=== PATIENT | male | born 2000 | race Caucasian/White ===

== ENCOUNTER 2023-01-24 14:17 | Inpatient (IN) | payer OTHER, SELFPAY ==
[2023-01-24 14:22] VITALS: BP 140/99; PULSE 72; RESP 17; TEMP 36.9; O2SAT 97; BMI 24.3
--- NOTE | 2023-01-24 15:16 | PC.NURSE ---
PATIENT PLACED IN BOTTOM SCRUBS FACILITY IS OUT OF TOPS THAT FIT PATIENT. FATHER WITH PATIENT AT THIS TIME. PATIENT STATES THAT FATHER MAKES HIM FEEL COMFORTABLE AT THIS TIME. CHARGE NURSE AGREED TO LET HIM STAY.
--- NOTE | 2023-01-24 15:22 | W.ED.PSYCHS ---
HPI - Psych General: Chief Complaint: Psychiatric Symptoms Stated Complaint: SI Time Seen by Provider: 01/24/23 14:37 Source: patient Mode of arrival: ambulatory History of Present Illness: 22-year-old male presents to the emergency room with complaints of suicidal ideation. Patient states he has dreams of killing himself he has had these since he was approximately 8 years old lately they have become more intense he has become more fixated on them and has begun to think about carrying out the dreams. He recently talked to his father about this he Dri-Aid Kit were intoxication trying to get himself over the fear of killing himself but was unable to do so please become very anxious and depressed about this. He is not currently on any medications not previously seen for mental health issues. MD complaint: suicidal ideation Onset (ago): year(s) Duration: constant, changing over time and getting worse Relieving factors: none Exacerbating factors: none Context: recent alcohol abuse Associated symptoms: Reports depression and suicidal ideation; Deny auditory hallucinations, visual hallucinations, delusions, homicidal ideation, racing thoughts or other Treatments prior to arrival: none If self harm: admits thoughts of self harm Review of Systems Const: Denies: fever(s) or chills Card: Denies: chest pain Resp: Denies: dyspnea GI: Denies: abdominal pain : Denies: dysuria, urinary frequency or urinary urgency Musc: Denies: neck pain or back pain Skin/Breast: Denies: rash Psych: Reports: depression and suicidal ideation; Denies: visual hallucinations, auditory hallucinations or homicidal ideation Physical Exam Const: COMMON NORMALS: no acute distress GENERAL APPEARANCE: cooperative and comfortable ORIENTATION/CONSCIOUSNESS: Yes awake, Yes oriented to person, Yes oriented to place and Yes oriented to time HENMT: COMMON NORMALS: normocephalic, atraumatic and hearing grossly normal bilaterally HEAD & SCALP: normocephalic and atraumatic Resp: COMMON NORMALS: normal respiratory effort, No retractions, No use of accessory muscles and clear to auscultation bilaterally AUSCULTATION: clear to auscultation bilaterally Cardio: COMMON NORMALS: regular rate, regular rhythm and No murmurs present (Cardio) RATE: regular rate RHYTHM: regular rhythm GI: COMMON NORMALS: Soft to palpation and No hepatosplenomegaly present AUSCULTATION: Yes normoactive bowel sounds PALPATION: Yes Soft to palpation, No Tenderness to palpation present (GI), No Guarding due to palpation present (GI) and Yes No hepatosplenomegaly present Extremity: COMMON NORMALS: normal to inspection, capillary refill normal, no clubbing, cyanosis or edema, no calf tenderness and no pedal edema Neuro: SENSORIUM/ORIENTATION: Yes oriented to person, Yes oriented to place and Yes oriented to time Psych: THOUGHT CONTENT: No delusions Skin: COMMON NORMALS: no rashes or lesions noted GENERAL SKIN EXAM: no rashes or lesions noted Course Vital Signs: Vital signs: Vital Signs Temperature 97.7 F 01/27/23 08:14 Pulse Rate 61 01/27/23 08:14 Respiratory Rate 16 01/27/23 08:14 Blood Pressure 98/59 01/27/23 08:14 Pulse Oximetry 98 01/27/23 08:14 Oxygen Delivery Me thod Room Air 01/27/23 06:00 MDM - Psych Medical Decision Making Suicidal ideation with attempted increasing lethality. Discussed with On-call psychiatry will admit Medical Records I reviewed the patient's medical records. Lab Data I reviewed the patient's lab results. 01/24/23 15:30 01/24/23 15:30 Laboratory Results WBC 8.24 10^3/uL (3.29-11.43) 01/24/23 15:30 RBC 5.24 10^6/uL (3.85-5.65) 01/24/23 15:30 Hgb 15.50 g/dL (11.27-16.99) 01/24/23 15:30 Hct 46.0 % (37-53) 01/24/23 15:30 MCV 87.8 fl (82-101) 01/24/23 15:30 MCH 29.6 pg (27-33) 01/24/23 15:30 MCHC 33.7 g/dL (30-55) 01/24/23 15:30 RDW 13.4 % (12.1-15.1) 01/24/23 15:30 Plt Count 370 10^3/cmm (157-399) 01/24/23 15:30 MPV 9.3 fL (7.4-10.4) 01/24/23 15:30 Neut % (Auto) 54.1 % 01/24/23 15:30 Lymph % (Auto) 34.5 % 01/24/23 15:30 Gray % (Auto) 8.1 % 01/24/23 15:30 Eos % (Auto) 2.5 % 01/24/23 15:30 Baso % (Auto) 0.6 % 01/24/23 15:30 Neut # (Auto) 4.45 10^3/uL (1.8-7.7) 01/24/23 15:30 Lymph # (Auto) 2.8 10^3/uL (0.8-4.8) 01/24/23 15:30 Gray # (Auto) 0.7 10^3/uL (0.2-0.9) 01/24/23 15:30 Eos # (Auto) 0.2 10^3/uL (0.0-0.8) 01/24/23 15:30 Baso # (Auto) 0.1 10^3/uL (0.0-0.1) 01/24/23 15:30 Nucleated RBC % (auto) 0 % 01/24/23 15:30 Nucleated RBCs # 0.0 /100WBC 01/24/23 15:30 Sodium 138 mmol/L (136-145) 01/24/23 15:30 Potassium 4.0 mmol/L (3.5-5.1) 01/24/23 15:30 Chloride 102 mmol/L (98-107) 01/24/23 15:30 Carbon Dioxide 25 mmol/L (22-29) 01/24/23 15:30 Anion Gap 15.0 (5-19) 01/24/23 15:30 BUN 10 mg/dL (6-20) 01/24/23 15:30 Creatinine 0.9 mg/dL (0.7-1.2) 01/24/23 15:30 GFR Calculation 104.6 mL/min (90-130) 01/24/23 15:30 Glucose 79 mg/dL (65-115) 01/24/23 15:30 Calculated Osmolality 284 mOsm/kg (285-295) L 01/24/23 15:30 Calcium 9.2 mg/dL (8.5-10.5) 01/24/23 15:30 Total Bilirubin 0.9 mg/dL (0.15-1.2) 01/24/23 15:30 AST 17 U/L (0-40) 01/24/23 15:30 ALT 18 U/L (0-41) 01/24/23 15:30 Alkaline Phosphatase 72 U/L (40-130) 01/24/23 15:30 Total Protein 7.1 g/dL (6.6-8.7) 01/24/23 15:30 Albumin 4.4 g/dL (3.5-5.2) 01/24/23 15:30 Globulin 2.7 g/dL (1.3-4.6) 01/24/23 15:30 Urine Color Yellow (Yellow) 01/24/23 14:55 Urine Appearance Sl hazy (CLEAR) A 01/24/23 14:55 Urine pH 8 (5-7) H 01/24/23 14:55 Ur Specific [place] 1.015 (1.005-1.030) 01/24/23 14:55 Urine Protein Neg (Negative) 01/24/23 14:55 Urine Glucose (UA) Norm (Normal) 01/24/23 14:55 Urine Ketones 1+ (Negative) H 01/24/23 14:55 Urine Blood Neg (Negative) 01/24/23 14:55 Urine Nitrate Negative (Negative) 01/24/23 14:55 Urine Bilirubin Neg (Negative) 01/24/23 14:55 Prot Sulfosalicylic Acd Negative (Negative) 01/24/23 14:55 Urine Urobilinogen 4 mg/dL (Negative) H 01/24/23 14:55 Ur Leukocyte Esterase Trace (Negative) H 01/24/23 14:55 Urine RBC None /hpf (0-2) 01/24/23 14:55 Urine WBC 0-4 /hpf (0-5) H 01/24/23 14:55 Ur Squamous Epith Cells None /hpf (0-5) 01/24/23 14:55 Amorphous Sediment 2+ /hpf 01/24/23 14:55 Urine Bacteria 1+ /hpf (NONE) H 01/24/23 14:55 Salicylates < 0.3 mg/dL (3-10) L 01/24/23 15:30 Urine Opiates Screen Negative ng/mL (Negative) 01/24/23 14:55 Acetaminophen < 5.0 ug/mL (10-30) L 01/24/23 15:30 Ur Barbiturates Screen Negative ng/mL (Negative) 01/24/23 14:55 Ur Phencyclidine Scrn Negative ng/mL (Negative) 01/24/23 14:55 Ur Amphetamines Screen Negative ng/mL (Negative) 01/24/23 14:55 U Benzodiazepines Scrn Negative ng/mL (Negative) 01/24/23 14:55 Urine Cocaine Screen Negative ng/mL (Negative) 01/24/23 14:55 U Marijuana (THC) Screen Positive ng/mL (Negative) H 01/24/23 14:55 Ethyl Alcohol < 10 mg/dL (0-10) 01/24/23 15:30 No radiology studies performed this visit Discharge Plan Discharge Patient Disposition: Admitted As Inpatient Admit Provider: Yves Nixon Clinical Impression: Suicidal ideation, Persistent depressive disorder with anxious distress, currently moderate Condition: Stable Discharge Diet: Regular Discharge Activity: Resume usual activity Coding Level of Care Code ED Equal Opportunity Specialist for Adriana Ceron
[2023-01-24 15:35] LABS: Amphetamines Screen Urine Negative (Negative); Barbiturates Screen Urine Negative (Negative); Benzodiazepines Screen Urine Negative (Negative); Cocaine Screen Urine Negative (Negative); Opiate Screen Urine Negative (Negative); PCP Screen Urine Negative (Negative); THC Screen Urine Positive (Negative)
[2023-01-24 15:38] LABS: Basophils # 0.1 10^3/uL (0.0-0.1); Basophils % 0.6 %; Eosinophils # 0.2 10^3/uL (0.0-0.8); Eosinophils % 2.5 %; Lymphocytes # 2.8 10^3/uL (0.8-4.8); Lymphocytes % 34.5 %; Mean Corpuscular HGB Conc 33.7 g/dL (30-55); Mean Corpuscular Hemoglobin 29.6 pg (27-33); Mean Corpuscular Volume 87.8 fl (82-101); Mean Platelet Volume 9.3 fL (7.4-10.4); Monocytes # 0.7 10^3/uL (0.2-0.9); Monocytes % 8.1 %; Neutrophils # 4.45 10^3/uL (1.8-7.7); Neutrophils % 54.1 %; Nucleated Red Blood Cells % 0 %; Platelet Count 370 10^3/cmm (157-399); Red Blood Count 5.24 10^6/uL (3.85-5.65); Red Cell Distribution Width 13.4 % (12.1-15.1); White Blood Count 8.24 10^3/uL (3.29-11.43)
[2023-01-24 15:39] LABS: Urine Appearance SL Hazy (CLEAR); Urine Color Yellow (Yellow)
[2023-01-24 15:40] LABS: Add Urine Microscopic? YES; Amorphous Sediment Urine 2+ /hpf; Bacteria Urine 1+ /hpf; Bilirubin Urine Neg (Negative); Blood Urine Neg (Negative); Glucose Urine UA Norm (Normal); Ketones Urine 1+ (Negative); Leukocyte Esterase Urine Trace (Negative); Nitrate Urine Negative (Negative); Protein Urine Neg (Negative); Specific Gravity, Urine 1.015 (1.005-1.030); Sulfosalicylic Acid Urine Negative (Negative); Urobilinogen Urine 4 mg/dL (Negative); WBC Urine 0-4 /hpf (0-5); pH Urine 8 (5-7)
[2023-01-24 15:41] LABS: Add Urine Culture? No
[2023-01-24 16:01] LABS: Alanine Aminotransferase 18 U/L (0-41); Albumin Level 4.4 g/dL (3.5-5.2); Alkaline Phosphatase 72 U/L (40-130); Aspartate Amino Transferase 17 U/L (0-40); Blood Urea Nitrogen 10 mg/dL (6-20); Calcium 9.2 mg/dL (8.5-10.5); Carbon Dioxide 25 mmol/L (22-29); Chloride 102 mmol/L (98-107); Globulin 2.7 g/dL (1.3-4.6); Glomerular Filtration Rate 104.6 mL/min (90-130); Glucose 79 mg/dL (65-115); Osmolality Calculated 284 mOsm/kg (285-295); Sodium 138 mmol/L (136-145); Total Bilirubin 0.9 mg/dL (0.15-1.2); Total Protein 7.1 g/dL (6.6-8.7)
[2023-01-24 16:02] LABS: Acetaminophen < 5.0 ug/mL (10-30); Salicylate < 0.3 mg/dL (3-10)
[2023-01-24 16:54] LABS: Alcohol Level < 10 mg/dL (0-10)
[2023-01-24 17:35] VITALS: BP 157/67; PULSE 63; RESP 16; TEMP 36.6; O2SAT 99
[2023-01-24] MEDS: trazodone 50 mg Tablet PO (20:09)
[2023-01-24 20:13] VITALS: BP 92/48; PULSE 62; RESP 17; TEMP 36.9; O2SAT 96
[2023-01-25 06:00] VITALS: BP 104/66; PULSE 81; RESP 16; TEMP 36.6; O2SAT 97
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
[2023-01-25 14:00] VITALS: BP 101/59; PULSE 53; RESP 16; TEMP 36.6; O2SAT 96
[2023-01-25 20:53] VITALS: BP 100/68; PULSE 53; RESP 16; TEMP 36.7; O2SAT 98
[2023-01-26 06:00] VITALS: BP 104/66; PULSE 73; RESP 16; TEMP 37; O2SAT 98
[2023-01-26] MEDS: fluoxetine 20 mg Capsule PO (13:22)
[2023-01-26 14:00] VITALS: BP 102/62; PULSE 57; RESP 14; TEMP 36.8; O2SAT 99
--- NOTE | 2023-01-26 17:10 | W.PM.NPUPNS ---
Subjective NPU Subjective: Patient presented today reporting that he feels like he is doing a little better. He denied any issues with the medication currently and discussed desire to leave sooner rather than later. We discussed making sure we had outpatient treatment plans in place and that he was tolerating the medication. We discussed the likelihood of discharge in the next 48 hours if he continued to have current trajectory of improvement. Mental Status Exam MSE Comments: This is a well-nourished, well-developed, white male, in hospital scrubs, with improving grooming and eye contact. No abnormal movements, except for mild psychomotor retardation. Cooperative with exam in mild distress. Speech was normal rate and volume. Mood described as good; affect congruent. Thought process, organized. Thought content: patient denied any current suicidal ideation or homicidal ideation, there were no delusions reported or noted, patient denied any auditory or visual hallucinations. Attention, concentration, and memory appeared intact, but none were formally tested. Alert and oriented times three. Insight and judgment appear fair. Impulse control is limited, but improving. Vitals/I&O/Wt Last Vital Signs Temp 97.8 F 01/26/23 20:10 Pulse 57 L 01/26/23 20:10 Resp 18 01/26/23 20:10 BP 100/65 01/26/23 20:10 Pulse Ox 97 01/26/23 20:10 O2 Del Method Room Air 01/26/23 06:00 Weight last 48 hrs Weight 76.657 kg Data NPU 01/24/23 15:30 01/24/23 15:30 A&P Assessment and plan (1) Major depressive disorder, recurrent: (2) Persistent depressive disorder with anxious distress, currently moderate: (3) Generalized anxiety disorder: Plan This is a 22-year-old, white male, with some genetic loading for mental health issues, with a long history of suicidal thoughts and depressive symptoms, with no history of psychiatric treatment or medications, who presents with an affidavit, and reporting he finally realizes he needs help, with a willingness to start medication. 1. Started Prozac 20 mg p.o. daily. 2. Encourage individual, group, and milieu therapy. 3. Continue q-15-minute checks for safety. Involuntary Hold Information 96 Hour Hold: 96 Hour Involuntary Admission: No Attestations NPU Medical Necessity Statement*: Inpatient hospitalization is medically necessary and the clinically appropriate intervention, at this time. We will monitor medications and make changes as indicated. Likely length of stay is 1-3 days. Coding Level of Care Code Acute Code for [facility] Fwd Diagnoses Major depressive disorder, recurrent F33.9 Persistent depressive disorder with anxious distress, currently moderate F34.1 Generalized anxiety disorder F41.1
[2023-01-26] MEDS: trazodone 50 mg Tablet PO (19:49)
[2023-01-26 20:10] VITALS: BP 100/65; PULSE 57; RESP 18; TEMP 36.6; O2SAT 97
[2023-01-27 06:00] VITALS: BP 98/59; PULSE 61; RESP 16; TEMP 36.5; O2SAT 98
--- NOTE | 2023-01-27 08:08 | P.NPUDS_ITS ---
Diagnoses at Discharge Discharge Diagnosis (1) Major depressive disorder, recurrent: Status: Acute (2) Persistent depressive disorder with anxious distress, currently moderate: Status: Acute (3) Generalized anxiety disorder: Status: Acute Reason for Visit Reason for Visit: SI Brief History: History of Present Illness Silviano Gonzalez is a 22 year old male who presented to the emergency department with reports of depression and suicidal ideation since 8 years old with current worries of acting on his thoughts. The patient was admitted to the neuropsychiatric unit for definitive treatment of those issues. The patient presents today reporting that he is not currently on medications. He reports that what brought him here was he was having suicidal thoughts. The patient denies previous psychiatric hospitalization. He denies outpatient services or previous psychiatric medications. The patient reports that he vapes and has for about a year. He endorses alcohol use every other weekend, if that. He endorses marijuana use every other day. He denies use of cocaine, methamphetamine, opia genoveva, mushrooms, LSD, ecstasy or any other illicit drugs. He denies drug rehabilitation or DUI. He had an MIP, minor in possession charge, when he was 17 years old. He endorses feelings of hopelessness, helplessness, and worthlessness, all the time, lack of enjoyment, passive wish, and suicidal thoughts. He denies much sleep disturbance and endorses appetite changes, not eating as much. He endorses having intrusive thoughts about killing himself since he was around 8 years old. He endorses persistently just feeling down but has not previously pursued psychiatric treatment. He reports that yesterday was the first time he really thought he needed to get help, or something might actually happen. The patient reports that his parents got when he was 8 years old. He reports that his dad worked two jobs and they did not want to live with mom because she did not know how to take care of them. He reports that his dad worked, and the patient took care of himself and his little brother. He endorses anxiety with cognitive symptoms and physical symptoms. He denies paranoia. He denies auditory or visual hallucinations. He endorses frequent nightmares and flashbacks, from life events. He endorses counting in his mind and counting which manifests in specific behaviors. We discussed the risks, benefits, and alternatives of starting Prozac, and he understood and agreed to proceed as is documented in this note. PSYCHIATRIC HISTORY: As above. SUBSTANCE ABUSE HISTORY: As above.? FAMILY HISTORY: The patient endorses mental health issues on his mom?s side of the family, stating he thinks his mom has depression. He denies awareness of addiction issues on either side of the family. He endorses suicide attempt on dad?s side. DEVELOPMENTAL HISTORY: The patient denies any issues with his mother?s or delivery of him. The patient reports learning to walk and talk and meeting developmental milestones on time. The patient denies speech therapy, learning support, emo tional support, or special education classes. He denies IEP or 504 plans. PSYCHOSOCIAL HISTORY: The patient reports that his mother and father were together at his , and when he was 8 years old. He has a younger brother who is also from that union. He denies any other children. He describes his childhood as okay. He endorses neglect and denies emotional, physical, or sexual abuse. He denies [employer] involvement. He endorses trauma from his parent?s fighting. He reports that he graduated from high school. He endorses [employer] training. He endorses being heterosexual, with his longest relationship being six months. He has not been or had children. He denies service or a uatsdin belief system. He reports that his longest job was about six months. He reports that he has done well at various jobs but ends up leaving because he is bored. He reports that he currently lives in ? with a roommate. LEGAL HISTORY: Denied. MEDICAL HISTORY: The patient denies any known allergies to medications. He endorses asthma when he was growing up. Hospital Course Hospital Course He quickly acclimated to the individual, group and milieu therapies provided.? He presented reporting suicidal ideation but was open to a medication trial. He was started on Prozac 20 mg p.o. daily as well as trazodone 50 mg p.o. nightly with clear improvement. He was able to work with the social work team to establish appropriate aftercare and follow-up appointments. He had significant improvement during his stay and was able to contract for safety outside of the hospital prior to discharge.? During the hospitalization, patient had routine laboratory studies which were within normal limits except for few outliers.? Additionally there was a general medical evaluation which was also within normal limits and revealed no new acute processes. At the time of discharge, he denied psychosis or lethality.? Mood and anxiety were well managed.? Patient endorsed a plan to avoid all drugs of abuse and follow-up with the aftercare recommendations of the treatment team.? Patient was evaluated and deemed to be absent credible lethality, and had the maximum benefit of inpatient hospitalization, so was discharged. Involuntary Hold Information 96 Hour Hold: 96 Hour Involuntary Admission: No Mental Status Exam MSE Comments: This is a well-nourished, well-developed, white male, in hospital scrubs, with improving grooming and eye contact. No abnormal movements, except for mild psychomotor retardation. Cooperative with exam in mild distress. Speech was normal rate and volume. Mood described as good; affect congruent. Thought process, organized. Thought content: patient denied any current suicidal ideation or homicidal ideation, there were no delusions reported or noted, patient denied any auditory or visual hallucinations. Attention, concentration, and memory appeared intact, but none were formally tested. Alert and oriented times three. Insight and judgment appear fair. Impulse control is limited, but improving. Discharge Data Studies Completed and Pending: Laboratory Results WBC 8.24 10^3/uL (3.2 9-11.43) 01/24/23 15:30 RBC 5.24 10^6/uL (3.8 5-5.65) 01/24/23 15:30 Hgb 15.50 g/dL (11.27 -16.99) 01/24/23 15:30 Hct 46.0 % (37-53) 01/24/23 15:30 MCV 87.8 fl (82-101) 01/24/23 15:30 MCH 29.6 pg (27-33) 01/24/23 15:30 MCHC 33.7 g/dL (30-55) 01/24/23 15:30 RDW 13.4 % (12.1-15.1 ) 01/24/23 15:30 Plt Count 370 10^3/cmm (157 -399) 01/24/23 15:30 MPV 9.3 fL (7.4-10.4) 01/24/23 15:30 Neut % (Auto) 54.1 % 01/24/23 15:30 Lymph % (Auto) 34.5 % 01/24/23 15:30 Cannon % (Auto) 8.1 % 01/24/23 15:30 Eos % (Auto) 2.5 % 01/24/23 15:30 Baso % (Auto) 0.6 % 01/24/23 15:30 Neut # (Auto) 4.45 10^3/uL (1.8 -7.7) 01/24/23 15:30 Lymph # (Auto) 2.8 10^3/uL (0.8- 4.8) 01/24/23 15:30 Cannon # (Auto) 0.7 10^3/uL (0.2- 0.9) 01/24/23 15:30 Eos # (Auto) 0.2 10^3/uL (0.0- 0.8) 01/24/23 15:30 Baso # (Auto) 0.1 10^3/uL (0.0- 0.1) 01/24/23 15:30 Nucleated RBC % (a uto) 0 % 01/24/23 15:30 Nucleated RBCs # 0.0 /100WBC 01/24/23 15:30 Sodium 138 mmol/L (136-1 45) 01/24/23 15:30 Potassium 4.0 mmol/L (3.5-5 .1) 01/24/23 15:30 Chloride 102 mmol/L (98-10 7) 01/24/23 15:30 Carbon Dioxide 25 mmol/L (22-29) 01/24/23 15:30 Anion Gap 15.0 (5-19) 01/24/23 15:30 BUN 10 mg/dL (6-20) 01/24/23 15:30 Creatinine 0.9 mg/dL (0.7-1. 2) 01/24/23 15:30 GFR Calculation 104.6 mL/min (90- 130) 01/24/23 15:30 Glucose 79 mg/dL (65-115) 01/24/23 15:30 Calculated Osmolal ity 284 mOsm/kg (285- 295) L 01/24/23 15:30 Calcium 9.2 mg/dL (8.5-10 .5) 01/24/23 15:30 Total Bilirubin 0.9 mg/dL (0.15-1 .2) 01/24/23 15:30 AST 17 U/L (0-40) 01/24/23 15:30 ALT 18 U/L (0-41) 01/24/23 15:30 Alkaline Phosphata se 72 U/L (40-130) 01/24/23 15:30 Total Protein 7.1 g/dL (6.6-8.7 ) 01/24/23 15:30 Albumin 4.4 g/dL (3.5-5.2 ) 01/24/23 15:30 Globulin 2.7 g/dL (1.3-4.6 ) 01/24/23 15:30 Urine Color Yellow (Yellow) 01/24/23 14:55 Urine Appearance Sl hazy (CLEAR) A 01/24/23 14:55 Urine pH 8 (5-7) H 01/24/23 14:55 Ur Specific Gravit y 1.015 (1.005-1.0 30) 01/24/23 14:55 Urine Protein Neg (Negative) 01/24/23 14:55 Urine Glucose (UA) Norm (Normal) 01/24/23 14:55 Urine Ketones 1+ (Negative) H 01/24/23 14:55 Urine Blood Neg (Negative) 01/24/23 14:55 Urine Nitrate Negative (Negati ve) 01/24/23 14:55 Urine Bilirubin Neg (Negative) 01/24/23 14:55 Prot Sulfosalicyli c Acd Negative (Negati ve) 01/24/23 14:55 Urine Urobilinogen 4 mg/dL (Negative ) H 01/24/23 14:55 Ur Leukocyte Grecia ase Trace (Negative) H 01/24/23 14:55 Urine RBC None /hpf (0-2) 01/24/23 14:55 Urine WBC 0-4 /hpf (0-5) H 01/24/23 14:55 Ur Squamous Epith Cells None /hpf (0-5) 01/24/23 14:55 Amorphous Sediment 2+ /hpf 01/24/23 14:55 Urine Bacteria 1+ /hpf (NONE) H 01/24/23 14:55 Salicylates < 0.3 mg/dL (3-10 ) L 01/24/23 15:30 Urine Opiates Scre en Negative ng/mL (N egative) 01/24/23 14:55 Acetaminophen < 5.0 ug/mL (10-3 0) L 01/24/23 15:30 Ur Barbiturates Sc reen Negative ng/mL (N egative) 01/24/23 14:55 Ur Phencyclidine S crn Negative ng/mL (N egative) 01/24/23 14:55 Ur Amphetamines Sc reen Negative ng/mL (N egative) 01/24/23 14:55 U Benzodiazepines Scrn Negative ng/mL (N egative) 01/24/23 14:55 Urine Cocaine Scre en Negative ng/mL (N egative) 01/24/23 14:55 U Marijuana (THC) Screen Positive ng/mL (N egative) H 01/24/23 14:55 Ethyl Alcohol < 10 mg/dL (0-10) 01/24/23 15:30 Vitals: Last Vital Signs Temp 97.7 F 01/27/23 06:00 Pulse 61 01/27/23 06:00 Resp 16 01/27/23 06:00 BP 98/59 01/27/23 06:00 Pulse Ox 98 01/27/23 06:00 O2 Del Method Room Air 01/27/23 06:00 Discharge Plan Discharge Patient Disposition: Home Condition: Stable Prescriptions: New trazodone 50 mg Tablet 50 mg PO BEDTIME PRN (Reason: Sleep) 30 Days Qty: 30 1RF fluoxetine 20 mg Capsule 20 mg PO DAILY 30 Days Qty: 30 1RF Discharge Orders: Discharge Order (Routine); Ordered 01/27/23 Ordered By: Yves Nixon Referrals: [facility] [Outside] - 02/04/23 10:15 am (Initial assessment for services) Discharge Diet: Regular Discharge Activity: Resume usual activity Patient Instructions: Generalized Anxiety Disorder, Depression, Fluoxetine (By mouth), Trazodone (By mouth), Opioid Safety Discharge Attestations NPU Time Spent in Discharge Care*: less than 30 min Specific Discharge Activities: Specific discharge activities: educating patient, discussing with spring encaser/social workers/dc planners, documenting/other paperwork and evaluating patient/reviewing data Coding Level of Care Code Acute Chg FW DC note Diagnoses Major depressive disorder, recurrent F33.9 Persistent depressive disorder with anxious distress, currently moderate F34.1 Generalized anxiety disorder F41.1
[2023-01-27 08:14] VITALS: BP 98/59; PULSE 61; RESP 16; TEMP 36.5; O2SAT 98
[2023-01-27] MEDS: fluoxetine 20 mg Capsule PO (09:56)
== END 2023-01-27 10:15 | disposition home or self-care (01) | DRG 885 ==
LOC: ER 15:22 → NP 17:25
PROVIDERS: Admitting Provider Psychiatry & Neurology Psychiatry; Emergency Provider Family Medicine; Visit Provider Psychiatry & Neurology Psychiatry
DX: F33.9 Major depressive disorder, recurrent, unspecified (principal); R45.851 Suicidal ideations; F34.1 Dysthymic disorder; F41.1 Generalized anxiety disorder; F17.290 Nicotine dependence, other tobacco product, uncomplicated; F10.10 Alcohol abuse, uncomplicated; F12.90 Cannabis use, unspecified, uncomplicated; Z81.8 Family history of other mental and behavioral disorders
CPT/HCPCS: 36415; 80053; 80306; 80307; 81001; 85025; 97165; 99285

== ENCOUNTER → 2023-04-28 09:49 | Outpatient (BNVA) | payer OTHER, SELFPAY | PROVIDERS: Visit Provider Nurse Practitioner Psychiatric/Mental Health | DX: Z03.89 Encounter for observation for other suspected diseases and conditions ruled out (principal) | CPT/HCPCS: 80061; 83036 ==